=== PATIENT | female | born 1950 | race Caucasian/White ===

== ENCOUNTER 2023-08-09 11:22 | Emergency (ER) | payer MEDICARE, SELFPAY ==
[2023-08-09 11:24] VITALS: BP 143/69
--- NOTE | 2023-08-09 13:13 | ED.GENMED ---
History of Present Illness
General
Chief Complaint: Musculo-Skeletal Complaint
Source: patient and spouse
Exam Limitations: none
Time Seen by Provider: 08/09/23 11:36
Nursing documentation reviewed up to this point in time: agreed with
Travel History
Have you had any contact with someone who has COVID-19?: No
Do you have any symptoms of coronavirus? Fever > 100 degrees, chills, cough, shortness of breath, sore throat, loss of taste or smell, muscle aches, or headache?: No
History of Present Illness
History of Present Illness:
72-year-old female patient with history of hypertension hyperlipidemia and IDDM presenting to the emergency department today with concerns of left foot discomfort over the past 2 days after stepping awkwardly on a lawnmower intermittent. Has been
able to walk but has discomfort ongoing to her foot pain made worse with weightbearing but able to walk. Denies numbness weakness or additional concerns.
Review of Systems
Review of Systems
Allergies reviewed?: Yes
All Other Systems: ROS reviewed and negative except as documented in HPI and ROS
Phy Exam
Physical Exam
Physical Exam:
GENERAL: Alert , in no apparent distress
EYE: pupils equal and reactive
NECK: Supple, no significant adenopathy.
ENT: o/p clr, mmm.
CARDIAC: Regular rate and rhythm .
LUNGS: Clear breath sounds bilaterally, no acute respiratory distress, no wheezes/rales/rhonchi
ABDOMEN: Soft, without focal tenderness, no r/g, no cvat
NEUROLOGICAL: Alert and oriented, no focal neuro deficits
SKIN: Warm and dry, skin intact.
MUSCULOSKELETAL: Mild swelling tenderness palpation to the left lateral midfoot no pain to the base of the fifth metatarsal no pain to the ankle, montano or toes. Good range of motion and strength of the ankle and toes., well perfused.
PSYCH: Normal and appropriate interaction.
Course
Orders/Labs/Results
Orders:
Orders
08/09/23 11:28
Foot, Left 3 View [CR Foot - Left Min 3 Views] Urgent
Comment:
Reason For Exam: pain
08/09/23 13:15
Cast Shoe Left-Treatment ONCE
Vital Signs
Initial and Last Documented VS:
Initial Vital Signs
Temp Pulse Resp BP Pulse Ox
97.5 F 56 18 143/69 98
08/09/23 11:24 08/09/23 11:24 08/09/23 11:24 08/09/23 11:24 08/09/23 11:24
Last Documented Vital Signs
Temp Pulse Resp BP Pulse Ox
97.5 F 56 18 143/69 98
08/09/23 11:24 08/09/23 11:24 08/09/23 11:24 08/09/23 11:24 08/09/23 11:24
MDM/Problems Addressed
MDM/Problems Addressed:
72-year-old female presenting to the emergency department with foot discomfort after stepping all a few days ago. Has been able to walk but with discomfort. Here she had x-ray showing a fracture to the base of the fourth metatarsal. No
significant displacement. No involvement of the fifth metatarsal or additional abnormalities. Patient was given a protective boot and advised for close outpatient follow-up. Return precautions given.
*Critical Care Note
Total Time (30-74mins, 75-104mins- exclusive of procedures): Not Applicable
ED Attending Note
-
Portions of this chart may have been created with voice recognition software.� Occasional wrong word or��sound alike� substitutions may have occurred due to the inherent limitations of voice recognition software.
Discharge Plan
Departure
Patient Disposition: Home (Routine Discharge)
Date of Disposition: 08/09/23
Time of Disposition: 13:13
Patient with high blood pressure during this ER visit?: No
Condition: Good
Covid-19: Not Applicable
Discharge Problem:
Metatarsal fracture
Instructions: Foot Fracture (DC)
Referrals:
Reginaldo Diaz DPM [Active] - Follow up in 5-7 days
Activity Restrictions/Additional Instructions:
You came to the emergency department today with concerns of foot discomfort you are found to have a fourth metatarsal fracture. This is weightbearing as tolerated and follow-up closely with the foot doctor for further management. Return to the
emergency department any worsening, new or concerning symptoms.
Interventions
Interventions:
*Risk Screen - Suicide Last Done: 08/09/23 11:27
*General Assessment Last Done: 08/09/23 11:27
*Neglect/Abuse Screening Last Done: 08/09/23 11:27
ED-Musculoskeletal Assessment Last Done: 08/09/23 11:51
== END 2023-08-09 14:14 | disposition home or self-care (01) ==
LOC: EMR 11:22
PROVIDERS: EMERGENCY PHYSICIAN Emergency Medicine; FAMILY PHYSICIAN Internal Medicine
DX: S92.345A Nondisplaced fracture of fourth metatarsal bone, left foot, initial encounter for closed fracture (principal); X50.1XXA Overexertion from prolonged static or awkward postures, initial encounter; I10 Essential (primary) hypertension; E11.9 Type 2 diabetes mellitus without complications; E78.5 Hyperlipidemia, unspecified; Z79.4 Long term (current) use of insulin
CPT/HCPCS: 99283; 29515; 73630

== ENCOUNTER → 2024-10-06 13:39 | Outpatient (REF) | payer MEDICARE, SELFPAY | LOC: WDC 13:39 | PROVIDERS: ATTENDING PHYSICIAN Family Medicine | DX: Z78.0 Asymptomatic menopausal state (principal); Z12.31 Encounter for screening mammogram for malignant neoplasm of breast | CPT/HCPCS: 77063; 77067; 77080 ==